=== PATIENT | female | born 1995 | race Two or more races ===

== ENCOUNTER 2024-04-06 18:34 | Emergency (ER) | payer MEDICAID, OTHER ==
[~2024-04-06] VITALS: Ht 182.9 cm; Wt 94.2 kg
[2024-04-06 19:12] VITALS: BP 130/50; PULSE 104; RESP 18; TEMP 99.5; O2SAT 98
== END 2024-04-06 20:09 | disposition home or self-care (01) ==
LOC: ER 18:34
DX: M25.531 Pain in right wrist (principal); M79.631 Pain in right forearm; M25.521 Pain in right elbow; W01.0XXA Fall on same level from slipping, tripping and stumbling without subsequent striking against object, initial encounter; Y93.89 Activity, other specified; Y92.89 Other specified places as the place of occurrence of the external cause; Y99.8 Other external cause status
CPT/HCPCS: 73080; 73090; 73110

== ENCOUNTER 2024-04-27 17:48 | Emergency (ER) | payer MEDICAID ==
[~2024-04-27] VITALS: Ht 182.9 cm; Wt 98.4 kg
[2024-04-27 18:45] LABS: Basophils # (auto) 0 10 ^3/uL (0-0.2); Eosinophils # (auto) 0.1 10 ^3/uL (0-0.8); Eosinophils % (auto) 2.5 % (0.0-7.0); Hematocrit 37.8 % (36.0-46.0); Hemoglobin 12.9 g/dL (12.2-16.2); Lymphocytes # (auto) 1.3 10 ^3/uL (0.4-5.4); Mean Corpuscular Volume 88.3 fL (80.0-100.0); Monocytes # (auto) 0.3 10 ^3/uL (0-1.3); Monocytes % (auto) 7.5 % (0.0-12.0); Neutrophils # (auto) 2.5 10 ^3/uL (1.6-8.6); Red Blood Cells 4.28 10^6/uL (4.0-5.20); Red Cell Distribution Width 13.2 % (11.8-14.3); White Blood Cell 4.3 10^3/uL (4.4-10.8)
[2024-04-27 18:50] LABS: Chloride 110 mmol/L (98-107); Potassium 4.4 mmol/L (3.5-5.1); Sodium 138 mmol/L (136-145)
[2024-04-27 18:51] LABS: Anion Gap 5 (5-15); Calcium 8.7 mg/dL (8.5-10.1); Carbon Dioxide 23 mmol/L (20-30)
[2024-04-27 18:56] LABS: Urine Bacteria None Seen /hpf (None Seen)
[2024-04-27 18:56] LABS: BUN/Creatinine Ratio 9.5 (10.0-20.0); Blood Urea Nitrogen 11 mg/dL (9-23); Glucose 74 mg/dL (74-106)
[2024-04-27 19:36] LABS: Urine Blood Negative /uL (Negative); Urine Clarity Turbid (Clear); Urine Color Light-Yellow (Yellow); Urine Mucus FEW (None Seen); Urine Protein, UAD Negative (Negative); Urine Specific Gravity 1.014 (1.001-1.035); Urine Urobilinogen Normal (Negative); Urine WBC 1 /hpf (0 - 5)
[2024-04-27 22:37] VITALS: BP 111/52; TEMP 98.9
[2024-04-27 22:38] VITALS: PULSE 60; RESP 20; O2SAT 98
== END 2024-04-27 22:41 | disposition home or self-care (01) ==
LOC: ER 17:48
DX: N39.0 Urinary tract infection, site not specified (principal); R10.2 Pelvic and perineal pain; F31.9 Bipolar disorder, unspecified; Z88.8 Allergy status to other drugs, medicaments and biological substances
CPT/HCPCS: 36415; 76705; 80048; 81001; 84702; 85025

== ENCOUNTER 2024-07-27 16:23 | Emergency (ER) | payer MEDICAID ==
[~2024-07-27] VITALS: Ht 182.9 cm; Wt 91.9 kg
[2024-07-27 19:52] VITALS: BP 117/72; PULSE 59; RESP 18; TEMP 98.3; O2SAT 99
== END 2024-07-27 19:53 | disposition home or self-care (01) ==
LOC: ER 16:23
DX: S50.12XA Contusion of left forearm, initial encounter (principal); Z88.6 Allergy status to analgesic agent; W22.8XXA Striking against or struck by other objects, initial encounter; Y93.89 Activity, other specified; Y92.89 Other specified places as the place of occurrence of the external cause; Y99.8 Other external cause status
CPT/HCPCS: 73090